=== PATIENT | female | born 1950 | race Caucasian/White ===

== ENCOUNTER → 2017-12-24 12:46 | Outpatient (CLI) | payer MEDICARE, SELFPAY ==
--- NOTE | 2017-12-24 12:50 | HPBI_ITS ---
MAMMOGRAPHY - BILATERAL SCREENING REASON FOR EXAM: Female, 67 years old. Routine annual screening examination. PERTINENT HISTORY: Sister with breast cancer. Remote right stereotactic breast biopsies. TECHNIQUE: Digital bilateral breast anna (3D mammographic acquisition) in the CC and MLO projections. 2-D mediolateral oblique (MLO) and craniocaudad (CC) views of both breasts were obtained. CAD: Full Field Digital Mammography with Computer Added Detection was performed. COMPARISON: Comparison is made with prior study dated December 12, 2015 and November 23, 2014. FINDINGS: Breast Composition: There are scattered areas of fibroglandular density. There are no dominant masses or suspicious calcifications. A Sterotactic tissue clip marker is seen in the upper deep lateral portion of the right breast. A faint nodular density is seen at that site. This is unchanged. No other significant abnormalities are identified. There has been no significant change since the prior study. HPBI/SCREENING MAMM (CAD), BILAT IMPRESSION: Stable bilateral screening mammogram. Yearly follow-up mammogram recommended. (A) ASSESSMENT CATEGORY: BIRADS Category 2: Benign. A letter regarding these results will be sent to the patient by the facility within 30 days. Approximately 10% of breast cancers are not detected by mammography. A normal mammogram should not delay biopsy of a clinically suspicious abnormality. [id number] Electronically Signed: Arnoldo Yeager MD at 14:34 EST Tel [phone], Service support ,
--- NOTE | 2017-12-24 12:50 | HPBD_ITS ---
STUDY: DUAL ENERGY X-RAY ABSORPTIOMETRY / DXA REASON FOR EXAM: Female, 67 years old. The patient is postmenopausal. No loss of height. TECHNIQUE: Bone Mineral Density (BMD) measurements of lumbar spine and bilateral hips were obtained. COMPARISON: None. FINDINGS: Lumbar Spine (L1-L4): g/cm2 (0.961) / T-score (-1.8) / Z-score (-0.2) Findings are suggestive of osteopenia with a moderate fracture risk. Left Femur Total: g/cm2 (0.779) / T-score (-1.8) / Z-score (-0.4) Left Femoral Neck: g/cm2 (0.738) / T-score (-2.2) / Z-score (-0.5) Right Femur Total: g/cm2 (0.776) / T-score (-1.8) / Z-score (-0.4) Right Femoral Neck: g/cm2 (0.797) / T-score (-1.7) / Z-score (-0.1) HPBD/Dexa Bone Density Study (HP) IMPRESSION: The patient is considered osteopenic as outlined below according to World Jason Organization (WHO) criteria with a moderate fracture risk. Reference Information: The T-score is the number of standard deviations above or below the standard which is normal for young adults at their peak bone mineral density. The World Health Organization (WHO) interprets the T-scores as follows: Above -1 Normal bone density Between -1 and -2.5 Osteopenia Equal to / or below -2.5 Osteoporosis As a practical clinical guideline, osteopenia may be graded as follows: Mild -1 through -1.5 Moderate -1.6 through -2.0 Severe -2.1 through -2.4 The Z-score is the number of standard deviations above or below age-matched controls. A Z-score of less than -1.5 would be considered abnormal. References: 1. NIH Osteoporosis and Related Bone Diseases http://www.osteo.org 2. International Society for Clinical Densitometry http://www.iscd.org 3. National Osteoporosis Foundation http://www.nof.org Electronically Signed: Arnoldo Yeager MD at 13:41 EST Tel [phone], Service support ,
== END ==
PROVIDERS: Family Provider Family Medicine; PCP Family Medicine; Visit Provider Family Medicine
DX: Z12.31 Encounter for screening mammogram for malignant neoplasm of breast (principal); N95.9 Unspecified menopausal and perimenopausal disorder
CPT/HCPCS: 77063; 77067; 77080

== ENCOUNTER → 2018-08-07 10:20 | Outpatient (CLI) | payer MEDICARE, SELFPAY | PROVIDERS: Visit Provider Obstetrics & Gynecology | DX: N39.0 Urinary tract infection, site not specified (principal) | CPT/HCPCS: 87077; 87086; 87088; 87186 ==

== ENCOUNTER → 2018-11-14 08:46 | Outpatient (CLI) | payer MEDICARE, SELFPAY ==
[2016-11-13 06:11] VITALS: BMI 23.8
[2018-11-14 11:14] LABS: Anion Gap 6 (5-15); BUN 13 mg/dL (7-18); BUN/Creat Ratio 19.4 RATIO (10-20); Calcium,Total 8.4 mg/dL (8.5-10.1); Chloride 108 mmol/L (98-107); Creatinine, Serum 0.67 mg/dL (0.55-1.02); EST Glomerular Filtration Rate 93 mL/min (>60); Est Glom Filt Rate - Afr Amer 112 mL/min (>60); Glucose 79 mg/dL (74-106); Potassium 4.2 mmol/L (3.5-5.1); Sodium Level 140 mmol/L (136-145)
[2018-11-14 12:31] LABS: Vitamin D,25 Hydroxy 25.8 ng/mL (29.95-100.01)
--- OUTSIDE RECORDS SUMMARY | 2019-01-18 15:50 | XMS RPT_ITS ---
:1950 Author Organization OHIP Care Team Providers Name Role Phone Kelechi Mnoge Attending Unavailable Kelechi Monge Referring Unavailable Kelechi Monge Primary Care Unavailable Kelechi Monge Attending Unavailable Kelechi Monge Referring Unavailable [place], Kelechi Primary Care Unavailable Maribel [place] Attending Unavailable PROBLEMS PROBLEMS DATE TYPE CONDITION / CODE ATTENDING STATUS SOURCE 11/14/2018 Unknown Z00.00 - Kelechi Monge Active [place] Encounter for [facility] medical Repository examination without abnormal findings / Z00.00(ICD-10) 11/14/2018 Unknown M85.80 - Other Kelechi Monge Active [place] specified Community disorders of bone Hospital density and Repository structure, unspecified site / M85.80(ICD-10) 08/07/2018 Unknown N39.0 - Urinary Maribel Hills Active [place] tract infection, Community site not Hospital specified / Repository N39.0(ICD-10) 12/24/2017 Unknown Z12.31 - Kelechi Monge Active [place] Encounter for [facility] screening Hospital mammogram for Repository malignant neoplasm of breast / Z12.31(ICD-10) PROCEDURES PROCEDURES No Procedure Records FoundRESULTS RESULTS BASIC METABOLIC Collected: 11/14/2018 Status: F Source: [place] PROFILE (BMP) 8:57 AM [facility] REPOSITORY Order Comment: PT DECLINED LIPID TYPE CODE TESTS RESULT OUT OF RANGE REFERENCE UNITS LAB L501.0100 74-106 mg/dL Normal GLU 79 Result Comment: Please note revised GLUCOSE reference range effective 2017. LAB L501.1000 7-18 mg/dL Normal BUN 13 LAB L501.1100 0.55-1.02 mg/dL Normal CREAT,SERUM 0.67 Result Comment: The validity of the calculated GFR AND GFRAA in patients over 70 years has not been determined. Clinical correlation is essential. LAB L501.1110 >60 mL/min Normal EST GFR 93 Result Comment: Non- GFR Calc LAB L501.1115 >60 mL/min Normal EST GFR - AA 112 Result Comment: GFR Calc LAB L501.1300 10-20 RATIO Normal BUN/CRE 19.4 LAB L501.2200 8.5-10.1 mg/dL Low CA 8.4 LAB L501.5300 136-145 mmol/L NA Normal 140 LAB L501.5600 3.5-5.1 mmol/L K Normal 4.2 LAB L501.5900 98-107 mmol/L High CL 108 LAB L501.6100 21.0-32.0 mmol/L Normal CO2 26.0 LAB L501.6200 5-15 Normal GAP 6 Performed By: #### L500.2500 #### [facility] [address] [place], [place], [address] VITAMIN D,25 HYDROXY Collected: 11/14/2018 Status: F Source: [place] 8:57 AM [facility] REPOSITORY TYPE CODE TESTS RESULT OUT OF REFERENCE UNITS RANGE LAB L506.1000 29.95-100.01 ng/mL Low Vitamin D 25.8 25-OH Result Comment: Vitamin D 25(OH) Status Range Deficiency <20 ng/mL (50nmol/L) Insuffciency 20 - 30 ng/mL (50 - 75 nmol/L) Sufficiency 30 - 100 ng/mL (75 - 250 nmol/L) Toxicity >100 ng/mL (>250 nmol/L) Performed By: #### L506.1000 #### [facility] [address] [place], [address] Observed: 08/07/2018 Status: F Source: [place] CULTURE, URINE 10:00 AM [facility] REPOSITORY Urine Culture ORGANISM 1: Klebsiella oxytoca [place] Count >100,000 Klebsiella oxytoca: REACTION Amoxacillin/Clavulanic Acid $ <=2 S Ampicillin $ 16 R Ampicillin/Sulbactam $ 4 S Cefazolin $ <=4 S Cefepime $ <=1 S Ceftriaxone $ <=1 S Ciprofloxacin $ <=0.25 S ESBL - Ertapenim $$$ <=0.5 S Gentamicin $ <=1 S Imipenem *NF <=0.25 S Levofloxacin $ <=0.12 S Nitrofurantoin $ 64 I Piperacillin/Tazobactam $$ <=4 S Tobramycin $ <=1 S Trimethoprim/Sulfametho $ <=20 S (NF) indicates non-formulary drug at [facility]. Approval by Infectious Disease Specialist required before non-formulary drugs may be ordered and/or dispensed. Performed By: #### M100.0650 #### [facility] [address], [address] DEXA BONE DENSITY Observed: 12/24/2017 Status: F Source: [place] STUDY () 12:51 PM [facility] REPOSITORY [facility] Imaging Services [address] [place] [address] Dexa Bone Density Study () MR#: [id number] Acct: [id number] Name: SINDY ELLIOTT Rep #: [id number] : 1950 F 67 From: Arnoldo Yeager MD PCP: Kelechi Monge MD Status: REG CLI Study: Dexa Bone Density Study () Date of Exam: 12/24/17 Exam# [id number] Ordering Dr: Kelechi Monge MD STUDY: DUAL ENERGY X-RAY ABSORPTIOMETRY / DXA REASON FOR EXAM: Female, 67 years old. The patient is postmenopausal. No loss of height. TECHNIQUE: Bone Mineral Density (BMD) measurements of lumbar spine and bilateral hips were obtained. COMPARISON: None. FINDINGS: Lumbar Spine (L1-L4): g/cm2 (0.961) / T-score (-1.8) / Z-score (-0.2) Findings are suggestive of osteopenia with a moderate fracture risk. Left Femur Total: g/cm2 (0.779) / T-score (-1.8) / Z- score (-0.4) Left Femoral Neck: g/cm2 (0.738) / T-score (-2.2) / Z- score (-0.5) Right Femur Total: g/cm2 (0.776) / T-score (-1.8) / Z- score (-0.4) Right Femoral Neck: g/cm2 (0.797) / T-score (-1.7) / Z-score (-0.1) HPBD/Dexa Bone Density Study (HP) IMPRESSION: The patient is considered osteopenic as outlined below according to World Jason Organization (WHO) criteria with a moderate fracture risk. Reference Information: The T-score is the number of standard deviations above or below the standard which is normal for young adults at their peak bone mineral density. The World Health Organization (WHO) interprets the T-scores as follows: Above -1 Normal bone density Between -1 and -2.5 Osteopenia Equal to / or below -2.5 Osteoporosis As a practical clinical guideline, osteopenia may be graded as follows: Mild -1 through -1.5 Moderate -1.6 through -2.0 Severe -2.1 through -2.4 The Z-score is the number of standard deviations above or below age-matched controls. A Z-score of less than -1.5 would be considered abnormal. References: 1. NIH Osteoporosis and Related Bone Diseases http://www.osteo.org 2. International Society for Clinical Densitometry http://www.iscd.org 3. National Osteoporosis Foundation http://www.nof.org Electronically Signed: Arnoldo Yeager MD at 13:41 EST Tel [phone], Service support , CC: Kelechi Monge MD [facility] Pharmacy: Signed SCREENING MAMM (CAD), Observed: 12/24/2017 Status: F Source: [place] BILAT 12:51 PM [facility] REPOSITORY [facility] Imaging Services [address] [place] [address] SCREENING MAMM (CAD), BILAT MR#: [id number] Acct: [id number] Name: SINDY ELLIOTT Rep #: [id number] : 1950 F 67 From: Arnoldo Yeager MD PCP: Kelechi Monge MD Status: REG CLI Study: SCREENING MAMM (CAD), BILAT Date of Exam: 12/24/17 Exam# [id number] Ordering Dr: Kelechi Monge MD MAMMOGRAPHY - BILATERAL SCREENING REASON FOR EXAM: Female, 67 years old. Routine annual screening examination. PERTINENT HISTORY: Sister with breast cancer. Remote right stereotactic breast biopsies. TECHNIQUE: Digital bilateral breast anna (3D mammographic acquisition) in the CC and MLO projections. 2-D mediolateral oblique (MLO) and craniocaudad (CC) views of both breasts were obtained. CAD: Full Field Digital Mammography with Computer Added Detection was performed. COMPARISON: Comparison is made with prior study dated December 12, 2015 and November 23, 2014. FINDINGS: Breast Composition: There are scattered areas of fibroglandular density. There are no dominant masses or suspicious calcifications. A Sterotactic tissue clip marker is seen in the upper deep lateral portion of the right breast. A faint nodular density is seen at that site. This is unchanged. No other significant abnormalities are identified. There has been no significant change since the prior study. HPBI/SCREENING MAMM (CAD), BILAT IMPRESSION: Stable bilateral screening mammogram. Yearly follow-up mammogram recommended. (A) ASSESSMENT CATEGORY: BIRADS Category 2: Benign. A letter regarding these results will be sent to the patient by the facility within 30 days. Approximately 10% of breast cancers are not detected by mammography. A normal mammogram should not delay biopsy of a clinically suspicious abnormality. [id number] Electronically Signed: Arnoldo Yeager MD at 14:34 EST Tel [phone], Service support , CC: Kelechi Monge MD Del[facility] Pharmacy: Signed ALLERGIES ALLERGIES DATE TYPE / CODE NAME / CODE REACTION SEVERITY SOURCE 11/08/2016 Drug No Known Unknown [place] [facility] Allergy/4160 Allergies/F00 Hospital 15580(SNOMED [id number](RXNOR Repository CT) M) ENCOUNTERS ENCOUNTERS ADMIT/DISCHARGE ACCOUNT ADMITTING ENCOUNTER LOCATION SOURCE NUMBER CLASS 11/14/2018 [id number] Ambulatory [place] 0 [facility] ing:MTLAB Repository 08/07/2018 [id number] Ambulatory [place] 9 [facility] ing:LABSPEC Repository 12/24/2017 [id number] Ambulatory [place] 0 [facility] ing:BD Repository PAYERS PAYERS ENCOUNTER GUARANTOR PAYER SUBSCRIBER SOURCE 11/14/2018 SINDY Chewoster [id number] OIL [place] [facility] [place]: [id number] [address]Ufc: [id number] Repository Date:[id number], [place] [address]PU: 11/14/2018 Secondary NOT GIVENUNK [place] Insurance:SELF PAY [facility] Number: Effective Repository Date:2018-11-14 08/07/2018 SINDY Chewoster [id number] OIL Insurance[place] [facility] [place]: [id number] [address]Jbg: [id number] Repository Date:2931-49-29ZD [address] () [id number] [place] [address]WL: 08/07/2018 Secondary NOT GIVENUNK [place] Insurance:SELF PAY [facility]: Effective Repository Date:2018-08-07 12/24/2017 CESAR Dmitriy Primary SINDY [place] [id number] OIL Insurance[place] [facility] [place]: [id number] [address]Iey: [id number] Repository Date:[id number] ([place]) [id number] [place] [address]ER: 12/24/2017 Secondary NOT GIVENUNK [place] Insurance:SELF PAY [facility] Number: Effective Repository Date:2017-12-02
== END ==
PROVIDERS: Family Provider Family Medicine; PCP Family Medicine; Referring Provider Family Medicine; Visit Provider Family Medicine
DX: Z00.00 Encounter for general adult medical examination without abnormal findings (principal)
CPT/HCPCS: 36415; 80048; 82306

== ENCOUNTER → 2019-01-13 07:24 | Outpatient (CLI) | payer MEDICARE, SELFPAY ==
--- NOTE | 2019-01-13 07:13 | BI_ITS ---
MAMMOGRAPHY - BILATERAL SCREENING REASON FOR EXAM: Female, 68 years old. Routine annual screening examination. PERTINENT HISTORY: fam hx sister age 40, vag hrt since 01/2018 rt stereo bx 2000, 2007, rt mole marked TECHNIQUE: Digital bilateral breast anna (3D mammographic acquisition) in the CC and MLO projections. 2-D mediolateral oblique (MLO) and craniocaudad (CC) views of both breasts were obtained. CAD: Full Field Digital Mammography with Computer Added Detection was performed. COMPARISON: 12/24/2017 and 12/12/2015 FINDINGS: Breast Composition: The breasts are almost entirely fatty. There are no dominant masses or suspicious calcifications. No other significant abnormalities are identified. BI/SCREENING MAMM (CAD), BILAT IMPRESSION: Stable bilateral screening mammogram. Yearly follow-up mammogram recommended. (A) ASSESSMENT CATEGORY: BIRADS Category 2: Benign. A letter regarding these results will be sent to the patient by the facility within 30 days. Approximately 10% of breast cancers are not detected by mammography. A normal mammogram should not delay biopsy of a clinically suspicious abnormality. [id number] Electronically Signed: Alvarado Douglas, at 17:33 EDT Tel , Service support ,
== END ==
PROVIDERS: Family Provider Family Medicine; PCP Family Medicine; Referring Provider Family Medicine; Visit Provider Family Medicine
DX: Z12.31 Encounter for screening mammogram for malignant neoplasm of breast (principal)
CPT/HCPCS: 77063; 77067

== ENCOUNTER → 2020-03-28 | Outpatient (CLI) | payer MEDICARE, SELFPAY ==
[2019-12-30 10:24] VITALS: BMI 23.8
--- NOTE | 2020-03-28 13:36 | BI_ITS ---
MAMMOGRAPHY - BILATERAL SCREENING REASON FOR EXAM: Female, 69 years old. Routine annual screening examination. PERTINENT HISTORY: Mother with breast cancer. TECHNIQUE: Digital bilateral breast tommy (3D mammographic acquisition) in the CC and MLO projections. 2-D mediolateral oblique (MLO) and craniocaudad (CC) views of both breasts were obtained. CAD: Full Field Digital Mammography with Computer Added Detection was performed. COMPARISON: Comparison is made with prior examination dated January 13, 2019 and December 24, 2017. FINDINGS: Breast Composition: The breasts are almost entirely fatty. There are no dominant masses or suspicious calcifications. Tissue clip marker is seen within a 7.9 mm nodule in the axillary region of the right breast. Stable appearance of the bilateral axillary lymph nodes. No other significant abnormalities are identified. There has been no significant change since the prior study. BI/SCREEN MAMM (CAD) W/TOMMY BILAT IMPRESSION: Stable bilateral screening mammogram. Yearly follow-up mammogram recommended. (A) ASSESSMENT CATEGORY: BIRADS Category 2: Benign. A letter regarding these results will be sent to the patient by the facility within 30 days. Approximately 10% of breast cancers are not detected by mammography. A normal mammogram should not delay biopsy of a clinically suspicious abnormality. [id number] Electronically Signed: rAnoldo Yeager, at 14:37 EDT , Service support ,
== END | disposition home or self-care (01) ==
LOC: OPBI 13:35
PROVIDERS: PCP Family Medicine; Referring Provider Family Medicine; Visit Provider Family Medicine
DX: Z12.31 Encounter for screening mammogram for malignant neoplasm of breast (principal)
CPT/HCPCS: 77063; 77067

== ENCOUNTER → 2021-04-19 10:21 | Outpatient (CLI) | payer MEDICARE, SELFPAY ==
[2019-12-30 10:24] VITALS: BMI 23.8
--- NOTE | 2021-04-19 10:25 | RAD_ITS ---
STUDY: X-RAY - PELVIS AND BILATERAL HIPS REASON FOR EXAM: Female, 70 years old. HIP PAIN TECHNIQUE: 5 views of the hips and pelvis. COMPARISON: None. FINDINGS: Tubal ligation clips. No acute fracture, dislocation or osseous destruction. Osteopenia. Mild pubic symphysis arthrosis. Mild hip arthrosis, right greater than left. Mild sacroiliac arthrosis. Osseous moderate lumbar spine arthrosis. No significant soft tissue swelling. RAD/Hips B/L min 2 views w/ Pelvis IMPRESSION: Bilateral hips and pelvis intact with degenerative changes, as above Electronically Signed: Fabian Martin DO at 8:08 EDT Tel , Service support ,
== END ==
PROVIDERS: PCP Family Medicine; Referring Provider Family Medicine; Visit Provider Family Medicine
DX: M25.551 Pain in right hip (principal); M25.552 Pain in left hip
CPT/HCPCS: 73521

== ENCOUNTER → 2021-04-21 08:40 | Outpatient (CLI) | payer MEDICARE, SELFPAY ==
[2019-12-30 10:24] VITALS: BMI 23.8
[2021-04-21 10:37] LABS: Vitamin D,25 Hydroxy 27.8 ng/mL
[2021-04-21 10:54] LABS: Anion Gap 5 (5-15); BUN 12 mg/dL (7-18); BUN/Creat Ratio 15.9 RATIO (10-20); Calcium,Total 8.8 mg/dL (8.5-10.1); Chloride 109 mmol/L (98-107); Cholesterol 182 mg/dL (200); Creatinine, Serum 0.76 mg/dL (0.55-1.02); EST Glomerular Filtration Rate 80 mL/min (>60); Est Glom Filt Rate - Afr Amer 97 mL/min (>60); Glucose 82 mg/dL (74-106); High Density Lipoprotein 61 mg/dL; Potassium 4.2 mmol/L (3.5-5.1); Sodium Level 142 mmol/L (136-145); Triglycerides 92 mg/dL; Very Low Density Lipoprotein 18 mg/dL (5-40)
== END ==
PROVIDERS: PCP Family Medicine; Referring Provider Family Medicine; Visit Provider Family Medicine
DX: Z00.00 Encounter for general adult medical examination without abnormal findings (principal); E55.9 Vitamin D deficiency, unspecified
CPT/HCPCS: 36415; 80048; 80061; 82306

== ENCOUNTER → 2021-04-28 12:33 | Outpatient (CLI) | payer MEDICARE, SELFPAY ==
[2019-12-30 10:24] VITALS: BMI 23.8
--- NOTE | 2021-04-28 12:36 | BI_ITS ---
MAMMOGRAPHY - BILATERAL SCREENING REASON FOR EXAM: Female, 70 years old. Routine annual screening examination. PERTINENT HISTORY: Sister with breast cancer. Prior right stereotactic breast biopsy. TECHNIQUE: Digital bilateral breast tommy (3D mammographic acquisition) in the CC and MLO projections. 2-D mediolateral oblique (MLO) and craniocaudad (CC) views of both breasts were obtained. CAD: Full Field Digital Mammography with Computer Added Detection was performed. COMPARISON: Comparison is made with prior study dated 03/28/2020 and 01/13/2019. FINDINGS: Breast Composition: The breasts are almost entirely fatty. There are no dominant masses or suspicious calcifications. Once again, a tissue clip marker is seen within a 7 mm nodule in the axillary region of the right breast. Stable small benign appearing bilateral axillary lymph nodes. No other significant abnormalities are identified. There has been no significant change since the prior study. BI/SCRN MAMM (CAD)W/TOMMY BILAT IMPRESSION: Stable bilateral screening mammogram. Yearly follow-up mammogram recommended. (A) ASSESSMENT CATEGORY: BIRADS Category 2: Benign. A letter regarding these results will be sent to the patient by the facility within 30 days. Approximately 10% of breast cancers are not detected by mammography. A normal mammogram should not delay biopsy of a clinically suspicious abnormality. [id number] Electronically Signed: Arnoldo Yeager MD at 13:36 EDT , Service support ,
== END ==
PROVIDERS: PCP Family Medicine; Referring Provider Family Medicine; Visit Provider Family Medicine
DX: Z12.31 Encounter for screening mammogram for malignant neoplasm of breast (principal)
CPT/HCPCS: 77063; 77067

== ENCOUNTER 2021-07-31 13:00 | Outpatient (RCR) | payer MEDICARE, SELFPAY ==
--- NOTE | 2021-07-19 11:20 | HP.OTEVAL_ITS ---
Patient's Visit Information SINDY ELLIOTT is a 70 year old F, referred to Occupational Therapy by Dr. Fawad Lawton MD, with a diagnosis of Dupuytren's contracture left hand. Date of Evaluation: 07/19/21 Occupational Therapist: Shirin Duarte, OTR/Fatmata, CHT - Subjective This 70 year old female was seen for OT eval with dx of palmar fascial fibromatosis (Dupuytren's) manipulation was 07/14/21. pt states she initially had open release done but about 4 years ago her finger started to curl again- she decided to have manipulation done and is currently happy she can straighten her finer but is unable to bend her finger now. Pts states her skin did tear the the manipulation. pt is active and would like to return to her PLOF. - ROM MP: left LF +25/30 right +5/95 PIP: left LF -30/65 right 0/ 105 DIP: left LF +24/0 right +20/50 ROM Comments: pt right hand full ROM. left digits full ROM. noted nodule at base of left RF. left MF deformity as she dislocated this finger in past hx. pt demo with tight ORL of left LF - Strength Strength Comments: will test later date - Sensation Sensation Comments: states slight numbness around skin tear - Quick DASH-Disab of Arm,Shoulder& Hand Quick DASH Score: 12.5000 - Goals Goal:: pt will demo a increase in left LF PIP ext to -10* or less indicating improvement in ROM by d.c. pt will demo a increase in left composite fist to hold small objects by d.c Goal:: skin tear will demo fully healed in 3 weeks Goal:: pt will demo iND. doffing/donning by end of 1st session. pt will demo understanding of skin care and precautions by end of 1st session - Rehabilitation General Assessment: pt demo with limited ROM of left LF and skin tear limiting pts ind. with ADLs and IADLS . Pt would benefit from skilled OT services 1-2x week for 3 weeks to improve ROM and use of left hand with ADls. Today therapist ian. custom paddle orthosis for night use for next 3-6 months- pt demo ind, doffing and donning and agree to return for orthosis adj. as needed. Therapist also ed. pt on PROM and AROM for left digits and hand- pt demo understanding and agree to POC. Rehabilitation Potential: Excellent - Anticipated Interventions A/AAROM/PROM, Strengthening, Wound Care, Orthoses - Visit Plan Frequency: 1-2x /Week Duration: 3 Weeks TEXT: Thank you for the opportunity to evaluate your patient. For Medicare and Medicare HMO plans, please review the plan of care and approve it. It will need to be FAXED BACK to us at [phone] for Medicare purposes. Please let me know if there are questions or concerns regarding this plan of care. Physician Signature: Date:
--- NOTE | 2021-07-31 13:34 | HP.OTDCSUM_ITS ---
It has been my pleasure to treat SINDY ELLIOTT under orders from Dr. Fawad Lawton MD, for the diagnosis of Dupuytren's contracture left hand for a total of 3 visit(s). Please see the following information for a summary of their discharge status. % Improvement: 90 Objective/Function: PT demo good functional grasp/ release pt is happy with sx-. pts DIP not flexing this could be due to pts slight boutonniere deformity. Therapy has ed. pt on DIP blocking holding PIP stable in Neutral position. pt wound is healed - some residual scabbing therapist ed. pt on removing after warm water soak or after shower- pt demo understanding. Therapist advised pt to continue with normal use of left hand- pt has met goals and d/c at this time. Patient Goals: Regain Mobility, Use Hand/Wrist/Arm Normally Again Goal:: pt will demo a increase in left LF PIP ext to -10* or less indicating im provement in ROM by d.c. pt will demo a increase in left composite fist to hold small objects by d.c Goal:: skin tear will demo fully healed in 3 weeks Goal:: pt will demo iND. doffing/donning by end of 1st session. pt will demo understanding of skin care and precautions by end of 1st session Discharge Comments: pt was seen in OT for 3 visits to ensure skin tear healed and pt was making gains with use of left hand with ADLs and IADLs. pt has met goals in OT and is D/C with HEP pt agree to POC . If there are questions or concerns regarding this patient's occupational therapy, please fell free to call me at [phone]. Thank you for the referral of this patient. Sincerely, Shirin Duarte, OTR/L, CHT
== END 2021-07-31 19:00 | disposition home or self-care (01) ==
LOC: OT 13:00
PROVIDERS: PCP Family Medicine; Referring Provider Orthopaedic Surgery; Visit Provider Orthopaedic Surgery
DX: M72.0 Palmar fascial fibromatosis [Dupuytren] (principal)
CPT/HCPCS: 97110; 97166; 97530; 97760

== ENCOUNTER → 2022-06-21 | Outpatient (CLI) | payer MEDICARE, SELFPAY ==
[2022-06-21 12:11] LABS: Anion Gap 4 (5-15); BUN 12 mg/dL (7-18); BUN/Creat Ratio 15.3 RATIO (10-20); Calcium,Total 8.9 mg/dL (8.5-10.1); Chloride 107 mmol/L (98-107); Cholesterol 171 mg/dL (200); Creatinine, Serum 0.78 mg/dL (0.55-1.02); EST Glomerular Filtration Rate 76 mL/min (>60); Est Glom Filt Rate - Afr Amer 92 mL/min (>60); Glucose 86 mg/dL (74-106); High Density Lipoprotein 60 mg/dL; Potassium 4.9 mmol/L (3.5-5.1); Sodium Level 140 mmol/L (136-145); Triglycerides 83 mg/dL; Very Low Density Lipoprotein 17 mg/dL (5-40)
== END | disposition home or self-care (01) ==
LOC: MFPLAB 09:40
PROVIDERS: PCP Family Medicine; Referring Provider Family Medicine; Visit Provider Family Medicine
DX: Z00.00 Encounter for general adult medical examination without abnormal findings (principal)
CPT/HCPCS: 36415; 80048; 80061

== ENCOUNTER → 2022-07-31 | Outpatient (CLI) | payer MEDICARE, SELFPAY ==
--- NOTE | 2022-07-31 14:47 | BI_ITS ---
MAMMOGRAPHY - BILATERAL SCREENING REASON FOR EXAM: Female, 71 years old. Routine annual screening examination. PERTINENT HISTORY: Sister with breast cancer. TECHNIQUE: Digital bilateral breast tommy (3D mammographic acquisition) in the CC and MLO projections. 2-D mediolateral oblique (MLO) and craniocaudad (CC) views of both breasts were obtained. CAD: Full Field Digital Mammography with Computer Added Detection was performed. COMPARISON: Comparison is made with prior study dated 04/28/2021 and 03/28/2020. FINDINGS: Breast Composition: The breasts are almost entirely fatty. There are no dominant masses or suspicious calcifications. Stable small benign-appearing bilateral axillary lymph nodes. A tissue clip marker is once again seen in the axillary region of the right breast. No other significant abnormalities are identified. There has been no significant change since the prior study. BI/SCRN MAMM (CAD)W/TOMMY BILAT IMPRESSION: Stable bilateral screening mammogram. Yearly follow-up mammogram recommended. (A) ASSESSMENT CATEGORY: BIRADS Category 2: Benign. A letter regarding these results will be sent to the patient by the facility within 30 days. Approximately 10% of breast cancers are not detected by mammography. A normal mammogram should not delay biopsy of a clinically suspicious abnormality. [id number] Electronically Signed: Arnoldo Yeager MD at 15:36 EDT ,
--- NOTE | 2022-07-31 15:17 | BD_ITS ---
STUDY: DUAL ENERGY X-RAY ABSORPTIOMETRY / DXA REASON FOR EXAM: Female, 71 years old. [id number] TECHNIQUE: Bone Mineral Density (BMD) measurements of lumbar spine and bilateral hips were obtained. COMPARISON: Comparison is made with prior study dated 12/24/2017. FINDINGS: Lumbar Spine (L1-L4): g/cm2 (0.789) / T-score (-2.1) / Z-score (0.2) Findings are suggestive of osteopenia with a high fracture risk. Left Femur Total: g/cm2 (0.776) / T-score (-1.4) / Z-score (0.4) Left Femoral Neck: g/cm2 (0.611) / T-score (-2.1) / Z-score (0.1) Right Femur Total: g/cm2 (0.732) / T-score (-1.7) / Z-score (0.0) Right Femoral Neck: g/cm2 (0.641) / T-score (-1.9) / Z-score (0.1) The T-Scores on the most recent prior examination were: Lumbar Spine (L1-L4): There has been worsening of bone density since the previous examination. Left Femur Total: which represents an improvement of 7.9%. Right Femur Total: which represents an improvement of 2.1%. BD/Dexa Bone Density Study IMPRESSION: The patient is considered osteopenic as outlined below according to World Jason Organization (WHO) criteria with a high fracture risk. There has been improvement of bone density since the previous examination. Reference Information: The T-score is the number of standard deviations above or below the standard which is normal for young adults at their peak bone mineral density. The World Health Organization (WHO) interprets the T-scores as follows: Above -1 Normal bone density Between -1 and -2.5 Osteopenia Equal to / or below -2.5 Osteoporosis As a practical clinical guideline, osteopenia may be graded as follows: Mild -1 through -1.5 Moderate -1.6 through -2.0 Severe -2.1 through -2.4 The Z-score is the number of standard deviations above or below age-matched controls. A Z-score of less than -1.5 would be considered abnormal. References: 1. NIH Osteoporosis and Related Bone Diseases www osteo.org 2. International Society for Clinical Densitometry www iscd.org 3. National Osteoporosis Foundation www nof.org Electronically Signed: Arnoldo Yeager MD at 14:39 EDT ,
== END | disposition home or self-care (01) ==
LOC: OPBD 14:45
PROVIDERS: PCP Family Medicine; Visit Provider Family Medicine
DX: Z12.31 Encounter for screening mammogram for malignant neoplasm of breast (principal); M85.80 Other specified disorders of bone density and structure, unspecified site; Z80.3 Family history of malignant neoplasm of breast; Z78.0 Asymptomatic menopausal state
CPT/HCPCS: 77063; 77067; 77080

== ENCOUNTER 2023-01-21 08:03 | Day surgery (SDC) | payer MEDICARE, SELFPAY ==
--- NOTE | 2023-01-21 08:25 | PCM.HP.BLA ---
History and Physical Date of Admission: 01/21/23 Chief complaint: Hysteroscopy dilation curettage History present illness: 72-year-old arrives for scheduled hysteroscopy dilation and curettage for postmenopausal bleeding. No medical changes since last seen. All questions answered and consent signed. Obstetric history: history of vaginal deliveries Past medical history: None Medications: None Allergies: No known drug allergy Past surgical history: Cholecystectomy, appendectomy, tubal ligation Social history: Denies smoking, alcohol use, drug use Family history: Denies history DVT or PE Review of systems: Besides above pertinent positives a full review of systems was performed and found to be negative Physical exam: Vitals: Pending General: Normal-appearing no acute distress HEENT: Normocephalic/atraumatic no cervical lymphadenopathy Cardiac/respiratory: No use of accessory muscles, nonlabored breathing Abdomen: Soft, nontender, nondistended Extremities: No peripheral edema normal peripheral pulses Psych: Normal affect, demeanor nonpressured speech Assessment plan: 72-year-old arrives for hysteroscopy dilation curettage for postmenopausal bleeding. Patient understands risk of the procedure include but are not limited to visceral or vascular injury, prolonged hospitalization, blood loss need for transfusion, reoperation. Patient state understanding wish to proceed. All questions were answered and consent was signed.
[2023-01-21 08:26] VITALS: BP 137/72; PULSE 95; RESP 16; TEMP 37.1; O2SAT 99; BMI 23.5
[2023-01-21] MEDS: Lactated Ringers 1,000 ML 15 ML IV (08:37)
--- NOTE | 2023-01-21 09:20 | DCINST_ITS ---
Discharge Instructions Diet Discharge Diet: No restrictions Activity Discharge Activity: Return to Normal Activity, May Drive and May Shower May resume sexual activity in: 4-6 weeks Weight Bearing Status: Weight bearing as tolerated Dressing / Incision Call your doctor if your incision/area has: Continuous Slow Oozing and Foul Smelling Discharge Call your doctor if you observe: Fever of 101 or Higher, Shortness of breath and Chest pain Follow Up Care Please Follow Up With: Charles Lawton MD When: 2-3 weeks postoperatively Test Results: Test results from this visit will be discussed in further detail at your follow- up appointment, if applicable. Discharge Plan Admission Attending Provider: Charles Lawton Primary Care Provider: Kelechi Monge Discharge Orders/Prescriptions Prescriptions: No Action estradiol 0.01 % (0.1 mg/gram) cream 1 g VAGINAL DAILY Referrals / Follow Up: Kelechi Monge MD [Primary Care Provider] - Disposition Disposition (needs filled in before D/C Order can be placed): Home, Self Care
--- NOTE | 2023-01-21 09:20 | PCM.OPRPT ---
Report of Operation Date of Procedure: 01/21/23 Pre-Operative Diagnosis: Postmenopausal bleeding Post-Operative Diagnosis: Postmenopausal Surgery/Procedure Performed:: Hysteroscopy, dilation curettage Description of Surgical Findings:: Surgeon: Charles Lawton MD Anesthesia: MAC EBL: 5 cc Urine output: 25 cc IV fluids: 600 cc Complications: None Specimen: Endometrial curettings Findings: Posterior fornix with superficial bleeding very minimal, after surgery likely the cause of her bleeding. Hysteroscopy with no pathology noted, negative for fibroids or polyps. Consent: Patient with postmenopausal bleeding elects for hysteroscopy, dilation curettage. Patient understands risk of the procedure include but are not limited to visceral or vascular injury, prolonged hospitalization, blood loss need for transfusion, reoperation. Patient stated understanding and wished to proceed. All questions were answered and consent was signed. Procedure: Patient was brought back to the OR where MAC anesthesia was found to be adequate. Patient was prepared and draped in a dorsolithotomy position with yellowfin stirrups. A weighted speculum is placed in the posterior aspect of the vagina and cervical dilators were used to dilate the cervix. Above findings were noted. Hysteroscopy was inserted and above findings were noted. Sharp endometrial curettings were performed in all quadrants of the uterus and sent to pathology. Good hemostasis was noted. All counts were correct x2. Patient tolerated procedure well and was brought to recovery in stable condition.
[2023-01-21 09:25] VITALS: BP 105/58; BP 137/72; PULSE 77; RESP 18; TEMP 36.6; O2SAT 95
[2023-01-21 09:30] VITALS: BP 105/61; BP 137/72; PULSE 72; RESP 18; O2SAT 94
[2023-01-21 09:35] VITALS: BP 114/68; BP 137/72; PULSE 65; RESP 18; O2SAT 96
[2023-01-21 09:42] VITALS: BP 112/73; BP 137/72; PULSE 70; RESP 18; TEMP 36.6; O2SAT 98
[2023-01-21 10:00] VITALS: BP 137/72
--- NOTE | 2023-01-21 10:15 | UTC_PTH ---
PATIENT: SINDY ELLIOTT LOC: [facility] – [place] U#:[id number] AGE/SX: 72/F ROOM: RE01/21/[address]: Dr. Charles Lawton MD : [id number] BED: DIS: 01/21/2023 SPEC #: [id number] RECD: 01/21/23 10:26 STATUS: SKYE NOWAK #: [id number] JACOB: 01/21/23 10:[address]: Charles Lawton DEPT: SURGICAL PATHOLOGY RECD BY: Franky Harding ENTERED: 01/21/23 11:15 SP TYPE: CISCO COSTA DR: Dr. Kelechi Monge MD Tissues: Uterine cervix, NOS Procedures: Surgery Specimen Level IV HEADER OPERATION: Hysteroscopy, dilation and curettage PRE-OP DIAGNOSIS: Postmenopausal bleeding TISSUE SUBMITTED: Uterine curettings MICROSCOPIC DIAGNOSIS Endometrium, curettings: Strips of benign superficial endometrium and endocervix. Focal squamous metaplasia. AM:dawna 01/22/2023 MICROSCOPIC DESCRIPTION Slides are reviewed. GROSS DESCRIPTION Received in fixative is one container labeled with the patient's name and designated uterine curettings. The specimen consists of multiple irregular fragments of mehta soft tissue that in aggregate measure 2.0 x 0.5 x 0.1 cm. The specimen is totally submitted in one cassette. / SJ:dawna 01/21/2023 TC:5 CPT: 36008
== END 2023-01-21 10:17 | disposition home or self-care (01) ==
LOC: SDC 08:11 → AC 08:12
PROVIDERS: PCP Family Medicine; Referring Provider Obstetrics & Gynecology; Visit Provider Obstetrics & Gynecology
PROC: 0UDB8ZZ Extraction of Endometrium, Via Natural or Artificial Opening Endoscopic (ICD-10-PCS; CPT 58558; principal; 2023-01-21 10:05)
DX: N95.0 Postmenopausal bleeding (principal); Z96.0 Presence of urogenital implants
CPT/HCPCS: 58558; 88305; J7120; J2405

== ENCOUNTER → 2023-08-01 | Outpatient (CLI) | payer MEDICARE, SELFPAY ==
[2023-08-01 18:08] LABS: Anion Gap 2 (5-15); BUN 18 mg/dL (7-18); BUN/Creat Ratio 23.3 RATIO (10-20); Calcium,Total 8.7 mg/dL (8.5-10.1); Chloride 111 mmol/L (98-107); Cholesterol 161 mg/dL (200); Creatinine, Serum 0.77 mg/dL (0.55-1.02); EST Glomerular Filtration Rate 77 mL/min (>60); Est Glom Filt Rate - Afr Amer 94 mL/min (>60); Glucose 83 mg/dL (74-106); High Density Lipoprotein 52 mg/dL; Potassium 3.9 mmol/L (3.5-5.1); Sodium Level 141 mmol/L (136-145); Triglycerides 134 mg/dL; Very Low Density Lipoprotein 27 mg/dL (5-40)
[2023-08-01 18:15] LABS: Vitamin D,25 Hydroxy 35.4 ng/mL
== END | disposition home or self-care (01) ==
LOC: MFPLAB 16:14
PROVIDERS: PCP Family Medicine; Visit Provider Family Medicine
DX: Z00.00 Encounter for general adult medical examination without abnormal findings (principal); Z13.6 Encounter for screening for cardiovascular disorders; E55.9 Vitamin D deficiency, unspecified
CPT/HCPCS: 36415; 80048; 80061; 82306

== ENCOUNTER → 2023-09-26 | Outpatient (CLI) | payer MEDICARE, SELFPAY ==
--- NOTE | 2023-09-26 10:12 | BI_ITS ---
MAMMOGRAPHY - BILATERAL SCREENING REASON FOR EXAM: Female, 73 years old. Routine annual screening examination. PERTINENT HISTORY: Sister with breast cancer. Prior right stereotactic breast biopsy. TECHNIQUE: Digital bilateral breast tommy (3D mammographic acquisition) in the CC and MLO projections. 2-D mediolateral oblique (MLO) and craniocaudad (CC) views of both breasts were obtained. CAD: Full Field Digital Mammography with Computer Added Detection was performed. COMPARISON: Comparison is made with prior study dated July 31, 2022 and April 28, 2021. FINDINGS: Breast Composition: The breasts are almost entirely fatty. There are no dominant masses or suspicious calcifications. Once again, a tissue clip marker is seen in the axillary region of the right breast. Stable small bilateral axillary lymph nodes. No other significant abnormalities are identified. There has been no significant change since the prior study. BI/SCRN MAMM (CAD)W/TOMMY BILAT IMPRESSION: Stable bilateral screening mammogram. Yearly follow-up mammogram recommended. (A) ASSESSMENT CATEGORY: BIRADS Category 2: Benign. A letter regarding these results will be sent to the patient by the facility within 30 days. Approximately 10% of breast cancers are not detected by mammography. A normal mammogram should not delay biopsy of a clinically suspicious abnormality. [id number] Electronically Signed: Arnoldo Yeager MD at 12:54 EST ,
== END | disposition home or self-care (01) ==
LOC: OPBI 10:11
PROVIDERS: PCP Family Medicine; Referring Provider Family Medicine; Visit Provider Family Medicine
DX: Z12.31 Encounter for screening mammogram for malignant neoplasm of breast (principal); Z80.3 Family history of malignant neoplasm of breast
CPT/HCPCS: 77063; 77067

== ENCOUNTER → 2024-09-28 | Outpatient (CLI) | payer MEDICARE, SELFPAY ==
--- NOTE | 2024-09-28 07:49 | BI_ITS ---
MAMMOGRAPHY - BILATERAL SCREENING REASON FOR EXAM: Female, 74 years old. Routine annual screening examination. PERTINENT HISTORY: Sister with breast cancer. History of remote right stereotactic biopsies. TECHNIQUE: Digital bilateral breast tommy (3D mammographic acquisition) in the CC and MLO projections. 2-D mediolateral oblique (MLO) and craniocaudad (CC) views of both breasts were obtained. CAD: Full Field Digital Mammography with Computer Added Detection was performed. COMPARISON: Comparison is made with prior study dated September 26, 2023 and July 31, 2022. FINDINGS: Breast Composition: The breasts are almost entirely fatty. There are no dominant masses or suspicious calcifications. Once again, a tissue clip marker is seen in the axillary region of the right breast. Stable small benign appearing bilateral axillary lymph nodes. No other significant abnormalities are identified. There has been no significant change since the prior study. BI/SCRN MAMM (CAD)W/TOMMY BILAT IMPRESSION: Stable bilateral screening mammogram. Yearly follow-up mammogram recommended. (A) ASSESSMENT CATEGORY: BIRADS Category 2: Benign. A letter regarding these results will be sent to the patient by the facility within 30 days. Approximately 10% of breast cancers are not detected by mammography. A normal mammogram should not delay biopsy of a clinically suspicious abnormality. [id number] Electronically Signed: Arnoldo Yeager MD at 10:11 EST ,
== END | disposition home or self-care (01) ==
LOC: OPBI 07:49
PROVIDERS: PCP Family Medicine; Referring Provider Nurse Practitioner Women's Health; Visit Provider Nurse Practitioner Women's Health
DX: Z12.31 Encounter for screening mammogram for malignant neoplasm of breast (principal)
CPT/HCPCS: 77063; 77067

== ENCOUNTER → 2024-12-04 | Outpatient (CLI) | payer MEDICARE, SELFPAY ==
[2024-12-04 10:19] LABS: Anion Gap 7 (5-15); BUN 12 mg/dL (7-18); BUN/Creat Ratio 16.5 RATIO (10-20); Calcium,Total 8.8 mg/dL (8.5-10.1); Chloride 107 mmol/L (98-107); Cholesterol 183 mg/dL (200); Creatinine, Serum 0.73 mg/dL (0.55-1.02); EST Glomerular Filtration Rate 83 mL/min (>60); Est Glom Filt Rate - Afr Amer 100 mL/min (>60); Glucose 82 mg/dL (74-106); High Density Lipoprotein 65 mg/dL; Potassium 4.2 mmol/L (3.5-5.1); Sodium Level 142 mmol/L (136-145); Triglycerides 100 mg/dL; Very Low Density Lipoprotein 20 mg/dL (5-40)
[2024-12-04 10:35] LABS: Vitamin D,25 Hydroxy 23.4 ng/mL
== END | disposition home or self-care (01) ==
PROVIDERS: PCP Family Medicine; Referring Provider Family Medicine; Visit Provider Family Medicine
DX: Z00.00 Encounter for general adult medical examination without abnormal findings (principal); E55.9 Vitamin D deficiency, unspecified
CPT/HCPCS: 36415; 80048; 80061; 82306

== ENCOUNTER → 2024-12-16 | Outpatient (CLI) | payer MEDICARE, SELFPAY ==
--- NOTE | 2024-12-16 07:28 | BD_ITS ---
PROCEDURE: DEXA BONE DENSITY STUDY REASON FOR EXAM: F, age 74 y/o . Postmenopausal. TECHNIQUE: DEXA scan of the lumbar spine and both hips. COMPARISON: Comparison is made with prior study dated July 31, 2022. FINDINGS: Lumbar Spine (L1-L4): g/cm2 (0.787)/T-score (-2.1)/Z-score (0.3) findings are suggestive of osteopenia with a high fracture risk. Left Femur Total: g/cm2 (0.770)/T-score (-1.4)/Z-score (0.4) Left Femoral Neck: g/cm2 (0.595)/T-score (-2.3)/Z-score (-0.2) Right Femur Total: g/cm2 (0.742)/T-score (-1.6)/Z-score (0.2) Right Femoral Neck: g/cm2 (0.629)/T-score (-2.0)/Z-score (0.2) The T-Scores on the most recent prior examination were: Lumbar Spine (L1-L4): There has been worsening of bone density since the previous examination. Left Femur Total: Worsening of 0.9%. Right Femur Total: Improvement of 1.4%. BD/Dexa Bone Density Study IMPRESSION: The patient is considered osteopenia as outlined below according to World Jason Organization (WHO) criteria with a high fracture risk. There has been worsening of bone density since the previous examination. Reading Location: [place] [id number]
== END | disposition home or self-care (01) ==
PROVIDERS: PCP Family Medicine; Referring Provider Family Medicine; Visit Provider Family Medicine
DX: Z00.00 Encounter for general adult medical examination without abnormal findings (principal); Z78.0 Asymptomatic menopausal state
CPT/HCPCS: 77080